=== PATIENT | male | born 1945 | race Caucasian/White ===

== ENCOUNTER → 2017-06-20 08:09 | Outpatient (CLI) | payer OTHER ==
--- NOTE | ~2017-06-20 | EC ---
PATIENT:LAKISHA WAGGONER DATE OF SERVICE: 06/20/17 SEX: M MEDICAL RECORD: [id number] DATE OF : 49 LOCATION:[facility] AGE OF PATIENT: 71 ADMISSION DATE: 06/20/17 REFERRING PHYSICIAN: INTERPRETING PHYSICIAN: JENNIE KRAMER MD ECHOCARDIOGRAM REPORT ECHO CHARGES 4 ECHO COMPLETE Date: 06/20 CLINICAL DIAGNOSIS: ISCHEMIC HEART DISEASE/ DIABETES ECHOCARDIOGRAPHIC MEASUREMENTS (adult normal given) AC root (d.<3.7cm) 3.7 cm LV Septum d (<1.2 cm> 1.6 cm Valve Excursion 1.6 cm LV Septum (systole) 2.4 cm Left Atria (s.<4.0cm> 3.8 cm LVPW d(<1.2cm) 1.2 cm RV (d.<2.3cm) 2.4 cm LVPW (sytole) 2.1 cm LV diastole(<5.6CM) 4.6 cm MV E-F(>70mm/sec) cm LV systole 2.8 cm LVOT Diameter 2.1 cm MV exc.(>10mm) cm Est.ejection fraction (50-75%) % DOPPLER: LVIT cm/sec A 52.0 cm/sec E 64.0 cm/sec LA cm/sec RVSP 33.0 mmHg LVOT 74.0 cm/sec AOP1/2T m/s Asc. Ao 134 cm/sec RVOT 56.0 cm/sec RA cm/sec PA 97.0 cm/sec AV Gradient Peak 7.2 mmHg AV Mean 3.9 mmHg AV Area 2.3 cm MV Gradient Peak 3.3 mmHg MV Mean 1.1 mmHg MV Area cm COMMENTS: Heater Helper: 1 DIANE VANCEOE Lobster Fisherman: 1 Dr. Kramer TAPE# PACS Pericardial Effusion N DATE OF SERVICE: PROCEDURE: Echocardiogram. FINDINGS: 1. Left ventricular chamber size is within normal limits. Left ventricular systolic function is normal. Overall ejection fraction estimated at 55%. 2. Left atrium, right atrium, and right ventricular chamber sizes are within normal limits. 3. Valvular structures have normal structure and motion. ECHOCARDIOGRAM REPORT [id number] LAKISHA WAGGONER 4. Doppler interrogation only reveals mild mitral regurgitation, mild tricuspid regurgitation, no other valvular insufficiency or stenosis. Pulmonary systolic pressure is normal estimated 33 mmHg. 5. No evidence of pericardial effusion or left ventricular thrombus. TRANSINT:[id number] Voice Confirmation ID: [id number] DOCUMENT ID: [id number] JENNIE KRAMER MD at 1056 CC: [id number] DICTATION DATE: 06/20/17 1138 AUCTION CLERK: 06/20/17 1320 DEP CLI 06/20/17 [id number] [place] [id number]
[2017-06-20 08:59] LABS: ALBUMIN 3.7 g/dL (3.4-5.0); ANION GAP 12.5 mmol/L (8-16); BILIRUBIN - TOTAL 0.46 mg/dL (0.2-1.3); CALCIUM 8.9 mg/dL (8.5-10.1); CARBON DIOXIDE 28.3 mmol/L (21.0-32.0); CREATININE - SERUM 1.4 mg/dL (0.6-1.3); POTASSIUM - SERUM 3.8 mmol/L (3.5-5.1); PROTEIN - SERUM 8.1 g/dL (6.4-8.2)
[2017-06-20 09:02] LABS: APPEARANCE CLEAR (CLEAR); BILIRUBIN NEGATIVE (NEGATIVE); COLOR YELLOW (YELLOW); GLUCOSE NEGATIVE (NEGATIVE); KETONE NEGATIVE (NEGATIVE); NITRITE NEGATIVE (NEGATIVE); PROTEIN NEGATIVE (NEGATIVE); UROBILINOGEN NORMAL (NORMAL)
[2017-06-20 09:04] LABS: BACTERIA FEW /hpf (NONE SEEN); EPITHELIAL CELLS OCC /hpf (0-5); HYALINE CAST RARE /lpf (NONE SEEN); MUCUS <1+ /lpf (NONE SEEN); RED CELLS - URINE 0-5 /hpf (0-5); WHITE CELLS - URINE OCC /hpf (0-5)
== END | disposition home or self-care (01) ==
LOC: D.LAB 08:09 → D.ECHO 10:05
PROVIDERS: Orthopaedic Surgery
DX: I25.9 Chronic ischemic heart disease, unspecified (principal); E11.65 Type 2 diabetes mellitus with hyperglycemia

== ENCOUNTER 2018-10-23 09:31 | Emergency (ER) | payer OTHER ==
[~2018-10-23] VITALS: Ht 175.3 cm; Wt 92.3 kg
[2018-10-23 09:41] VITALS: Ht 175.3 cm; Wt 92.3 kg
[2018-10-23] MEDS ORDERED: NORVASC10 MG PO (09:43)
[2018-10-23] MEDS ORDERED: VOLTAREN75 MG PO (09:43)
[2018-10-23] MEDS ORDERED: METFORMIN HCL500 M1 (09:43)
[2018-10-23] MEDS ORDERED: HYDROCHLOROTHIA25 MG PO (09:44)
[2018-10-23] MEDS ORDERED: GLUCOPHAGE500 MG PO (09:44)
[2018-10-23] MEDS ORDERED: LOPRESSOR25 MG PO (09:45)
[2018-10-23] MEDS ORDERED: BAYER CHEWABLE81 MG PO (09:45)
[2018-10-23 10:56] LABS: BASOPHILS 0.4 % (0-2); EOSINOPHILS 4.7 % (0-7); HEMATOCRIT 44.4 % (42.0-54.0); HEMOGLOBIN 15.3 g/dL (13.5-17.5); IMMATURE GRANULOCYTES 0.4 % (0-5); LYMPHOCYTES 17.2 % (15-50); MCH 30.1 pg (26.0-34.0); MCHC 34.5 g/dL (31.0-37.0); MCV 87.2 fL (80.0-100.0); MEAN PLATELET VOLUME 10.6 fL (7.4-10.4); MONOCYTES 10.1 % (2-11); NEUTROPHILS 67.2 % (40-80); PLATELET COUNT 200 10x3/uL (130-400); RBC 5.09 10x6/uL (4.20-6.10); RDW 14.7 % (11.5-14.5); WBC 6.9 10x3/uL (4.8-10.8)
[2018-10-23 11:03] LABS: INR 0.98 (0.85-1.17); PROTIME 12.5 SECONDS (11.6-15.0)
[2018-10-23 11:08] LABS: ALBUMIN 3.7 g/dL (3.4-5.0); ALKALINE PHOSPHATASE 86 U/L (46-116); ALT (SGPT) 23 U/L (10-68); BILIRUBIN - TOTAL 0.32 mg/dL (0.2-1.3); CALC OSMOLALITY 278 mosm/kg (275-300); CALCIUM 9.9 mg/dL (8.5-10.1); CARBON DIOXIDE 25.4 mmol/L (21.0-32.0); CHLORIDE - SERUM 102 mmol/L (98-107); CREATININE - SERUM 1.2 mg/dL (0.6-1.3); GLUCOSE 90 mg/dL (74-106); POTASSIUM - SERUM 3.7 mmol/L (3.5-5.1); PROTEIN - SERUM 7.8 g/dL (6.4-8.2); SODIUM 137 mmol/L (136-145); UREA NITROGEN 27 mg/dL (7-18); eGFR NON AFRICAN AMERICAN 64 mL/min (90-120)
[2018-10-23 11:20] LABS: CKMB 2.7 U/L (0.0-3.6); CREATINE KINASE 191 UL (21-232); MAGNESIUM - SERUM 2.3 mg/dL (1.8-2.4); THYROID STIMULATING HORMONE 6.61 uIU/mL (0.36-3.74); TROPONIN-I < 0.017 ng/mL (0.000-0.060)
[2018-10-23 12:09] VITALS: BP 132/81
== END 2018-10-23 12:09 | disposition home or self-care (01) ==
LOC: D.ER 09:31
PROVIDERS: Family Medicine
DX: G45.9 Transient cerebral ischemic attack, unspecified (principal); G81.91 Hemiplegia, unspecified affecting right dominant side; R47.81 Slurred speech